=== PATIENT | male | born 1965 | race Caucasian/White ===

== ENCOUNTER 2018-02-20 06:37 | Day surgery (SDC) | payer BC ==
[~2018-02-20] VITALS: Ht 198.1 cm; Wt 104.0 kg
[~2018-02-20 06:37] MED LIST: Coumadin5 MG PO; Crutch1 EACH MISC; ENOX100I SQ; ENOX40I SC; ESOM20 PO; FENO48 PO; FISH1000 PO; Lovenox100 MG/1 M SC; ONDA4 PO; OXYACE5T PO; PANT40 PO; Percocet 5-3251 EACH PO; RANI150 PO; WARF6 PO; XARELTO15 MG PO
== END 2018-02-20 08:45 | disposition home or self-care (01) ==
LOC: ORSCSDS 06:37
PROVIDERS: Surgery
PROC: 0DJD8ZZ Inspection of Lower Intestinal Tract, Via Natural or Artificial Opening Endoscopic (ICD-10-PCS; principal; 2018-02-20 08:00)
DX: Z12.11 Encounter for screening for malignant neoplasm of colon (principal); Z80.0 Family history of malignant neoplasm of digestive organs; Z87.891 Personal history of nicotine dependence; E78.5 Hyperlipidemia, unspecified; R73.9 Hyperglycemia, unspecified; Z79.899 Other long term (current) drug therapy
CPT/HCPCS: J0330; J1980; J2405; J7120

== ENCOUNTER 2019-07-13 15:38 | Emergency (ER) | payer BC ==
[~2019-07-13] VITALS: Ht 198.1 cm; Wt 106.6 kg
[2019-07-13] MEDS ORDERED: LATA.005SO BOTHEYES (15:52)
[2019-07-13 16:16] LABS: BASOPHILS ABSOLUTE AUTO 0.04 K/mm3 (0.00-0.23); BASOPHILS PERCENT AUTO 0 % (0-2); EOSINOPHILS ABSOLUTE AUTO 0.02 K/mm3 (0.00-0.68); EOSINOPHILS PERCENT AUTO 0 % (0-6); Hematocrit 42.9 % (37.0-53.0); Hemoglobin 14.6 g/dL (13.5-17.5); IMMATURE GRAN ABSOLUTE AUTO 0.05 K/mm3 (0.00-0.10); IMMATURE GRAN PERCENT AUTO 0 % (0-1); LYMPHOCYTES ABSOLUTE AUTO 2.14 K/mm3 (0.84-5.20); LYMPHOCYTES PERCENT AUTO 16 % (21-46); MONOCYTES ABSOLUTE AUTO 1.16 K/mm3 (0.16-1.47); MONOCYTES PERCENT AUTO 9 % (4-13); Mean Corpuscular Volume 94 fL (80-100); Mean Platelet Volume 9.5 fL (9.1-12.4); NEUTROPHILS ABSOLUTE AUTO 9.95 K/mm3 (1.96-9.15); NEUTROPHILS PERCENT AUTO 75 % (41-73); Platelet Count 203 K/mm3 (150-400); RDW Coefficient Variation 12.3 % (11.7-14.2); RDW Standard Deviation 43.1 fL (35.1-46.3); Red Blood Cell Count 4.56 M/mm3 (4.30-5.90); White Blood Cell Count 13.36 K/mm3 (4.00-11.30)
[2019-07-13 16:33] LABS: Albumin, Blood 3.7 g/dL (3.4-5.0); Bilirubin, Total 0.7 mg/dL (0.1-1.0); Bun/Creatinine Ratio 11.4 (12.0-20.0); Calcium, Blood 9.2 mg/dL (8.5-10.1); Creatinine, Blood 1.32 mg/dL (0.60-1.20); Globulin, Blood 3.7 g/dL (2.2-4.0); Potassium, Blood 3.7 mmol/L (3.5-5.5); Total Protein, Blood 7.4 g/dL (6.4-8.2)
[2019-07-13 17:22] LABS: Source, Urine Clean Catch
[2019-07-13 17:26] LABS: Bilirubin, Urine Neg (Neg); Blood, Urine 5+ (Neg); Glucose Qualitative, Urine Neg (Neg); Ketones, Urine Neg (Neg); Leukocyte Esterase, Urine Neg (Neg); Nitrite, Urine Neg (Neg); Protein, Urine Neg (Neg); Urobilinogen, Urine NORM (Normal)
[2019-07-13 17:41] LABS: Appearance, Urine Clear (Clear); Color, Urine Yellow (P-Yellow)
[2019-07-13 17:42] LABS: Bacteria Few /hpf; Calcium Oxalate Crystals Few /hpf; Squamous Epithelial Cells Rare /hpf (Few); White Blood Cells, Urine 0-2 /hpf (0-5)
== END 2019-07-13 20:20 | disposition home or self-care (01) ==
LOC: ER 15:38
PROVIDERS: Physician Assistant
DX: N20.2 Calculus of kidney with calculus of ureter (principal); D72.829 Elevated white blood cell count, unspecified; Z87.442 Personal history of urinary calculi; Z88.8 Allergy status to other drugs, medicaments and biological substances; Z88.6 Allergy status to analgesic agent; Z79.899 Other long term (current) drug therapy
CPT/HCPCS: 36415; 74177; 80053; 81001; 83690; 85025; 96365-59; 96375; 99284-25; A9270; A9270-GY; J0696; J2270; J2405; J3010; J7030; Q9967

== ENCOUNTER → 2019-08-20 | Outpatient (CLI) | payer BC ==
[~2019-08-20] MED LIST changes: +LATA.005SO BOTHEYES
[2019-08-28 15:06] LABS: CALCIUM OXALATE 5.97 ratio (0.00-6.00); CALCIUM, URINE 13.9 mg/dL (Not Estab.); CHLORIDE URINE 186 (110-250); CITRIC ACID (CITRATE) 179 mg/L (Not Estab.); CITRIC ACID(CITRATE) 537 mg/24 hr (320-1240); CREATININE, URINE 45.2 mg/dL (Not Estab.); MONOSODIUM URATE 2.56 ratio (0.00-4.00); OSMOLALITY, URINE 301 (300-900); SODIUM, URINE 249 (58-337); SODIUM, URINE 83 mmol/L (Not Estab.); STRUVITE 0.04 ratio (0.00-1.00); URIC ACID 0.31 ratio (0.00-1.20); URINE VOLUME 3000 mL/24 hr (800-1800); URINE VOLUME (PRESERVATIVE) 3000 mL/24 hr (800-1800)
== END | disposition home or self-care (01) ==
LOC: LAB SHORT 09:00 → OLS 09:00 → LAB FUT 08-10 16:25 → EDSTATUS 08-10 16:25
PROVIDERS: Urology
DX: N20.0 Calculus of kidney (principal)
CPT/HCPCS: 81003; 81050; 82131; 82140; 82340; 82436; 82507; 82570; 83735; 83935; 83945; 84105; 84133; 84300; 84392; 84560

== ENCOUNTER 2024-03-24 06:44 | Day surgery (SDC) | payer BC ==
[~2024-03-24] VITALS: Ht 198.1 cm; Wt 108.1 kg
[2024-03-24] MEDS ORDERED: FISH OIL 1,0001 EA10 (07:07)
[2024-03-24] MEDS ORDERED: MULVITA (07:07)
[2024-03-24] MEDS ORDERED: Vitamin C100 M1 (07:08)
[2024-03-24] MEDS ORDERED: Lactated Ringer's 1,000 ML IV ONE ×2 (07:18→07:34)
[2024-03-24] MEDS ORDERED: propofoL 50 ML IV ONE (07:18)
[2024-03-24 08:40] VITALS: BP 121/79
== END 2024-03-24 08:43 | disposition home or self-care (01) ==
LOC: ORSCSDS 06:44
PROVIDERS: Surgery
PROC: 0DBP8ZX Excision of Rectum, Via Natural or Artificial Opening Endoscopic, Diagnostic (ICD-10-PCS; principal; 2024-03-24 08:00)
DX: Z12.11 Encounter for screening for malignant neoplasm of colon (principal); Z80.0 Family history of malignant neoplasm of digestive organs; K62.1 Rectal polyp; H40.9 Unspecified glaucoma; Z79.899 Other long term (current) drug therapy
CPT/HCPCS: 88305; J2704; J7120